=== PATIENT | female | born 1970 | race Two or more races ===

== ENCOUNTER 2017-03-11 12:01 | Emergency (ER) | payer MEDICAID ==
[~2017-03-11] VITALS: Ht 165.1 cm; Wt 86.0 kg
[2017-03-11] MEDS ORDERED: ASPIRIN 81MG TABLET PO ONE (12:45)
[2017-03-11 13:00] LABS: BASOPHILS % 0.8 % (0.0-2.0); EOSINOPHILS % 0.7 % (0.0-5.0); HEMATOCRIT. 39.2 % (36.0-48.0); HEMOGLOBIN. 12.9 g/dL (12.0-16.0); LYMPHOCYTES % 20.9 % (20.0-50.0); MEAN CORPUSCULAR HEMOGLOBIN 29.1 pg (28.0-32.0); MEAN CORPUSCULAR VOLUME 88.2 fL (81.0-99.0); MEAN PLATELET VOLUME 8.5 fl (7.4-10.4); MONOCYTES % 6.7 % (2.0-8.0); NEUTROPHILS % 70.9 % (40.0-76.0); PLATELET 279 x1000/uL (130-400); RED BLOOD CELL COUNT 4.45 mill/uL (4.2-5.4); RED CELL DISTRIBUTION WIDTH 13.8 % (11.6-14.6)
[2017-03-11] MEDS ORDERED: SODIUM CHLORIDE 0.9% 1,000 ML IV ONE ×2 (13:00→15:45)
[2017-03-11 13:08] LABS: PROTHROMBIN TIME 10.4 sec (9.4-11.6)
[2017-03-11 13:17] LABS: CARBON DIOXIDE 26 mEq/L (21-32); CHLORIDE 108 mEq/L (98-107); TROPONIN I < 0.02 ng/mL (0.00-0.04)
[2017-03-11 14:06] VITALS: BP 142/89
[2017-03-11 14:33] LABS: CLARITY URINE TURBID (CLEAR); COLOR URINE YELLOW (YELLOW); GLUCOSE URINE NEGATIVE (NEGATIVE); KETONES URINE NEGATIVE (NEGATIVE); LEUKOCYTE ESTERASE URINE NEGATIVE (NEGATIVE); NITRITE URINE NEGATIVE (NEGATIVE); OCCULT BLOOD URINE NEGATIVE (NEGATIVE); PH URINE 7.5 (4.5-8.0); PROTEIN URINE NEGATIVE (NEGATIVE); SPECIFIC GRAVITY URINE 1.012 (1.005-1.030); UROBILINOGEN URINE 0.2 E.U./dL (0.2-1.0)
== END 2017-03-11 16:53 | disposition home or self-care (01) ==
LOC: ER 12:39
DX: E83.52 Hypercalcemia (principal); R55 Syncope and collapse; R00.1 Bradycardia, unspecified; Z98.890 Other specified postprocedural states
CPT/HCPCS: 36415; 71010; 80053; 81001; 81025; 83880; 84484; 85025; 85610; 93005; 96360; 96361; 99285; J7030

== ENCOUNTER 2021-04-14 05:54 | Emergency (ER) | payer MEDICAID ==
[~2021-04-14] VITALS: Ht 165.1 cm; Wt 87.0 kg
[2021-04-14] MEDS ORDERED: MORPHINE SULFATE 10 MG/ML CPJ IM ONE (06:45)
[2021-04-14] MEDS ORDERED: ACETAMINOPHEN 325MG TABLET PO ONE (06:45)
[2021-04-14 07:45] VITALS: BP 148/72
== END 2021-04-14 07:50 | disposition home or self-care (01) ==
LOC: ER 05:54
DX: S62.101A Fracture of unspecified carpal bone, right wrist, initial encounter for closed fracture (principal); W18.30XA Fall on same level, unspecified, initial encounter; Y93.89 Activity, other specified; Y92.89 Other specified places as the place of occurrence of the external cause; Y99.8 Other external cause status
CPT/HCPCS: 29125; 73110; 81025; 96372; 99283; J2270; A4565

== ENCOUNTER 2024-03-12 09:12 | Inpatient (IN) | payer MEDICAID, OTHER ==
[~2024-03-12] VITALS: Ht 165.1 cm; Wt 99.0 kg
[2024-03-12 09:38] LABS: BASOPHILS % 0.7 % (0.0-2.0); EOSINOPHILS % 0.7 % (0.0-5.0); HEMOGLOBIN. 13.1 g/dL (12.0-16.0); LYMPHOCYTES % 24.9 % (20.0-50.0); MEAN CORPUSCULAR HEMOGLOBIN 28.8 pg (28.0-32.0); MEAN CORPUSCULAR HGB CONC 32.8 g/dL (31.0-37.0); MEAN PLATELET VOLUME 8.4 fl (7.4-10.4); MONOCYTES % 5.5 % (2.0-8.0); NEUTROPHILS % 68.2 % (40.0-76.0); PLATELET 345 x1000/uL (130-400); RED BLOOD CELL COUNT 4.55 mill/uL (4.2-5.4); RED CELL DISTRIBUTION WIDTH 13.8 % (11.6-14.6); WHITE BLOOD COUNT 7.9 x1000/uL (4.5-11.0)
[2024-03-12 09:43] LABS: CHLORIDE 108 mEq/L (98-107); POTASSIUM 4.3 mEq/L (3.5-5.1); SODIUM 138 mEq/L (136-145)
[2024-03-12 09:44] LABS: CARBON DIOXIDE 25 mEq/L (21-32)
[2024-03-12 09:45] LABS: CALCIUM 11.4 mg/dL (8.7-10.4)
[2024-03-12 09:49] LABS: CREATININE 0.8 mg/dL (0.6-1.0); GLUCOSE 87 mg/dL (70-105)
[2024-03-12 09:50] LABS: UREA NITROGEN BLOOD 9 mg/dL (9-23)
[2024-03-12 09:51] LABS: TROPONIN I HIGH SENSITIVITY 17 ng/L (3.0-34)
[2024-03-12 09:59] LABS: CLARITY URINE CLEAR (CLEAR); COLOR URINE YELLOW (YELLOW); GLUCOSE URINE NEGATIVE (NEGATIVE); KETONES URINE NEGATIVE (NEGATIVE); LEUKOCYTE ESTERASE URINE NEGATIVE (NEGATIVE); NITRITE URINE NEGATIVE (NEGATIVE); OCCULT BLOOD URINE NEGATIVE (NEGATIVE); PROTEIN URINE NEGATIVE (NEGATIVE); SPECIFIC GRAVITY URINE 1.003 (1.005-1.030); UROBILINOGEN URINE 0.2 E.U./dL (0.2-1.0)
[2024-03-12] MEDS: KETOROLAC 15MG/ML VIAL IV NR (10:08)
[2024-03-12] MEDS: SODIUM CHLORIDE 0.9% 1,000 ML IV ONE (10:37)
[2024-03-12] MEDS: MORPHINE SULFATE 4 MG/ML INJ (FOR IV/IM USE) IV ONE (12:00)
[2024-03-12] MEDS ORDERED: IPRATROPIUM/ALBUTEROL 0.5-3(2.5)MG/3ML NEB HHN PRN (14:30)
[2024-03-12] MEDS ORDERED: ACETAMINOPHEN 325MG TABLET PO PRN ×2 (14:30)
[2024-03-12] MEDS ORDERED: CLONIDINE 0.1MG TABLET PO PRN (14:30)
[2024-03-12] MEDS ORDERED: DOCUSATE SODIUM 100MG CAPSULE PO PRN (14:30)
[2024-03-12] MEDS ORDERED: NALOXONE HCL 0.4MG/ML VIAL IV PRN (15:15)
[2024-03-12] MEDS: MORPHINE SULFATE 2 MG/ML INJ (NOT FOR IM USE) IV PRN ×2 (15:21→19:20)
[2024-03-12 16:40] VITALS: BP 169/84; PULSE 55; RESP 12; TEMP 36.418
[2024-03-12 17:00] VITALS: BP 169/84; PULSE 68; RESP 15; TEMP 36.3918; O2SAT 98
[2024-03-12] MEDS: KETOROLAC 10MG TABLET PO PRN (17:18)
[2024-03-12] MEDS: NITROGLYCERIN 0.4MG TABLET SL SL PRN (18:12)
[2024-03-12] MEDS: HYDRALAZINE 20MG/ML VIAL IV NR (18:57)
[2024-03-12] MEDS: NITROGLYCERIN OINT 1GM/INCH UDPKT TD SCH (18:57)
[2024-03-12 20:00] VITALS: BP 139/87; PULSE 62; RESP 17; O2SAT 100
[2024-03-12] MEDS: ONDANSETRON HCL 4MG/2ML INJ IV PRN (21:29)
[2024-03-12] MEDS: KETOROLAC 10MG TABLET PO NR (21:38)
[2024-03-12 22:42] LABS: TROPONIN I HIGH SENSITIVITY 17 ng/L (3.0-34)
[2024-03-13] VITALS: BP 128/81; PULSE 71; RESP 14; TEMP 36.44736; O2SAT 99
[2024-03-13] MEDS ORDERED: HYDRALAZINE 20MG/ML VIAL IV PRN
[2024-03-13 03:28] LABS: TROPONIN I HIGH SENSITIVITY 17 ng/L (3.0-34)
[2024-03-13 04:00] VITALS: PULSE 63; RESP 15; O2SAT 94
[2024-03-13 06:24] LABS: *AMPHETAMINES SCREEN URINE NEGATIVE (NEGATIVE); *BARBITURATES SCREEN URINE NEGATIVE (NEGATIVE); *BENZODIAZEPINES SCREEN URINE NEGATIVE (NEGATIVE); *COCAINE SCREEN URINE NEGATIVE (NEGATIVE); CANNABINOID URINE SCREEN PRESUMPTIVE POSITIVE (NEGATIVE); ECSTASY MDMA SCREEN URINE NEGATIVE (NEGATIVE); METHADONE URINE SCREEN NEGATIVE (NEGATIVE); OPIATES URINE SCREEN PRESUMPTIVE POSITIVE (NEGATIVE); PHENCYCLIDINE URINE SCREEN NEGATIVE (NEGATIVE)
[2024-03-13 07:36] LABS: TROPONIN I HIGH SENSITIVITY 16 ng/L (3.0-34)
[2024-03-13 07:37] LABS: CARBON DIOXIDE 23 mEq/L (21-32); CHLORIDE 106 mEq/L (98-107); POTASSIUM 3.9 mEq/L (3.5-5.1); SODIUM 138 mEq/L (136-145)
[2024-03-13 07:38] LABS: CALCIUM 10.9 mg/dL (8.7-10.4)
[2024-03-13 07:43] LABS: BASOPHILS % 0.7 % (0.0-2.0); CREATININE 0.7 mg/dL (0.6-1.0); EOSINOPHILS % 0.5 % (0.0-5.0); GLUCOSE 87 mg/dL (70-105); HEMATOCRIT. 37.3 % (36.0-48.0); HEMOGLOBIN. 12.2 g/dL (12.0-16.0); LYMPHOCYTES % 23.2 % (20.0-50.0); MEAN CORPUSCULAR HEMOGLOBIN 28.7 pg (28.0-32.0); MEAN CORPUSCULAR HGB CONC 32.6 g/dL (31.0-37.0); MEAN CORPUSCULAR VOLUME 88.2 fL (81.0-99.0); MEAN PLATELET VOLUME 8.6 fl (7.4-10.4); MONOCYTES % 7.3 % (2.0-8.0); NEUTROPHILS % 68.3 % (40.0-76.0); PLATELET 286 x1000/uL (130-400); RED BLOOD CELL COUNT 4.23 mill/uL (4.2-5.4); RED CELL DISTRIBUTION WIDTH 14.1 % (11.6-14.6); TRIGLYCERIDE 60 mg/dL (0-150); UREA NITROGEN BLOOD 10 mg/dL (9-23); WHITE BLOOD COUNT 8.2 x1000/uL (4.5-11.0)
[2024-03-13 07:44] LABS: LDL CHOLESTEROL 140 mg/dL (5-100)
[2024-03-13 07:45] LABS: CHOLESTEROL 194 mg/dL (<200); HDL CHOLESTEROL 51 mg/dL (>65)
[2024-03-13 08:00] VITALS: BP 137/84; PULSE 56; RESP 12; TEMP 36.6696; O2SAT 94
[2024-03-13] MEDS: HYDROCODONE/ACETAMINOPHEN 5/325MG TABLET PO PRN (08:47)
[2024-03-13 08:52] LABS: HEPATITIS B SURFACE ANTIGEN NEGATIVE (Negative)
[2024-03-13 09:14] LABS: HEPATITIS C AB NON REACTIVE (Neg) (Negative)
[2024-03-13] MEDS ORDERED: HYDR-4001 MT ×2 (09:53→12:44)
[2024-03-13 11:15] VITALS: BP 137/89; PULSE 70; TEMP 98; O2SAT 97
[2024-03-13 12:00] VITALS: BP 146/79; PULSE 69; RESP 18; TEMP 36.61404; O2SAT 98
[2024-03-13 13:15] VITALS: BP 146/79; PULSE 61; RESP 13
[2024-03-13] MEDS: MORPHINE SULFATE 2 MG/ML INJ (NOT FOR IM USE) IV PRN (13:15)
== END 2024-03-13 17:09 | disposition home or self-care (01) | DRG 203 ==
LOC: ER 09:12 → 5WST 10:40 → EDBEDREQTM 10:41 → EDBEDREQ 10:41 → 3WST 16:11
PROVIDERS: ADMIT Internal Medicine; ATTEND Internal Medicine
DX: M94.0 Chondrocostal junction syndrome [Tietze] (principal); F12.90 Cannabis use, unspecified, uncomplicated; S42.215A Unspecified nondisplaced fracture of surgical neck of left humerus, initial encounter for closed fracture; I10 Essential (primary) hypertension; R00.1 Bradycardia, unspecified; M62.838 Other muscle spasm; Z98.891 History of uterine scar from previous surgery
CPT/HCPCS: 36415; 71045; 73030; 80048; 80061; 80305; 81003; 84484; 85025; 86705; 87340; 93005; 93306; 99285; J0360; J1885; J2270; J2405